=== PATIENT | male | born 1970 | race Caucasian/White ===

== ENCOUNTER 2016-11-18 13:06 | Emergency (ER) | payer OTHER ==
[2016-11-18 13:18] VITALS: BP 129/78
--- NOTE | 2016-11-18 13:46 | PROVIDER DOCUMENTATION ---
HPI-General Adult - General Chief Complaint: Flu Symptoms Stated Complaint: FLU LIKE SX Time Seen by Provider: 11/18/16 13:13 Source: patient Allergies/Adverse Reactions: Patient Allergies Allergy/AdvReac Type Severity Reaction Status Date / Time No Known Allergies Allergy Verified 04/09/16 14:00 Home Medications: Fluoxetine [Prozac] 20 mg PO DAILY 11/23/13 Gabapentin [Neurontin] 800 mg PO BID 11/23/13 Pregabalin [Lyrica] 150 mg PO TID 11/23/13 Oxycodone E.r. [Oxycontin] 15 mg PO TID 09/07/15 - History of Present Illness -Gen Adult Nature of Presenting Problems: pt is a 46 y/o M that presents to the ER with 3 days of cough/congestion, sore throat, runny nose, fever/chills, body aches, and nausea. Location of Pain/Injury: reports: generalized Pain Radiation: reports: no radiation Quality of Pain: reports: aching Severity: reports: mild, moderate Onset/Duration: reports: gradual, 3 days ago Timing: reports: still present, constant Context/Activities at Onset: reports: none Modifying Factors: improves with: nothing Associated Symptoms: reports: cough, EENT symptoms, fever/chills, heartburn, muscle aches, nausea. denies: diarrhea, genitourinary problems, headaches, rash , shortness of breath, vomiting Similar Symptoms Previously?: No Recently seen or treated by another doctor?: No Review of Systems - Adult - REVIEW OF SYSTEMS - ADULT Constitutional: reports: chills, fever Eyes: denies: decreased vision, blurred vision, double vision Ears, Nose, Mouth & Throat: reports: sinus problem, throat pain. denies: ear pain Cardiovascular: denies: chest pain, palpitations Respiratory: reports: cough. denies: shortness of breath, wheezing Gastrointestinal: reports: nausea. denies: abdominal pain, diarrhea, rectal bleeding Genitourinary: reports: no symptoms reported Musculoskeletal: reports: muscle aches. denies: muscle weakness Integumentary: reports: no symptoms reported Neurological: reports: no symptoms reported Psychiatric: reports: no symptoms reported Endocrine: reports: no symptoms reported Hematologic/Lymphatic: reports: no symptoms reported Allergic/Immunologic: reports: no symptoms reported All Other Systems: Reviewed and Negative Past History - Adult - PAST MEDICAL HISTORY-ADULT Review of Records: reports: Old Records Reviewed, Nursing Assessment Review, Medications Reviewed Respiratory: reports: other (chronic cough) Gastrointestinal: reports: denies history Musculoskeletal: reports: chronic pain Psychiatric: reports: depression - PRIOR SURGERIES/PROCEDURES Surgical/Procedure History: reports: hernia repair, back/neck (back x3) - IMMUNIZATION STATUS Childhood Immunizations: See Nurse Assessment Flu Vaccine: See Nurse Assessment - FAMILY HISTORY Family History: reviewed, not pertinent - SOCIAL HISTORY Smoking: cigarettes, less than 1 pack/day Alcohol Use Frequency: occasionally Physical Exam-General - PHYSICAL EXAM-ADULT Initial Vital Signs Reviewed: Yes - CONSTITUTIONAL General Appearance: alert, no apparent distress - EYES Eyes: PERRL/EOMI, pink conjunctivae, fundi clear, no AV nicking - HEAD, EARS, NOSE, MOUTH & THROAT HENMT: normocephalic/atraumatic, moist mucous membranes, normal ENT inspection - NECK Neck: full range of motion, normal inspection - RESPIRATORY Respiratory: no respiratory distress, no accessory muscle use, wheezing. negative: crackles, rales - CARDIOVASCULAR Cardiovascular: regular rate, rhythm, no edema, no murmur - GASTROINTESTINAL (ABDOMEN) Abdominal Exam: normal bowel sounds, non tender, soft - MUSCULOSKELETAL Extremity: normal range of motion, normal inspection, no pedal edema - SKIN Integumentary: normal color, warm/dry - NEUROLOGIC Neurologic: grossly normal, no motor/sensory deficits - PSYCHIATRIC Psych/Mental Status: normal mood/affect, normal thought content, normal thought process, oriented x 3 Progress - PLAN OF CARE/RESULTS Progress/Plan/Lab Results: plan of care-swabs, breathing tx, cxr, ekg, Vital Signs Temp Pulse Resp BP Pulse Ox 11/18/16 14:23 69 16 99 11/18/16 14:15 59 L 18 99 11/18/16 13:14 99 F 83 18 129/78 98 No Known Allergies Allergy (Verified 04/09/16 14:00) Fluoxetine [Prozac] 20 mg PO DAILY 11/23/13 Gabapentin [Neurontin] 800 mg PO BID 11/23/13 Pregabalin [Lyrica] 150 mg PO TID 11/23/13 Oxycodone E.r. [Oxycontin] 15 mg PO TID 09/07/15 Omeprazole 40 mg PO DAILY #30 capsule. 09/08/15 Laboratory 11/18/16 13:13 Influenza A (Rapid) NEGATIVE Influenza B (Rapid) NEGATIVE Orders Category Date Time Status CHEST-2 VIEWS [RAD] Stat Exams 11/18/16 13:[address] Stat Lab 11/18/16 13:[address] Stat Lab 11/18/16 13:13 Completed Albuterol 2.5MG/Ipratrop 0.5MG [Duoneb (A & A)] Med 11/18/16 13:49 Discontinued 3 ml INH NOW ONE Albuterol 2.5MG/Ipratrop 0.5MG [Duoneb (A & A)] Med 11/18/16 14:23 Discontinued 3 ml INH NOW ONE Lido/Mooney Alk/Al&mg Hydrox [G.i. Cocktail] Med 11/18/16 13:49 Discontinued 30 ml PO NOW ONE Methylprednisolone Sod Succ [Solu-Medrol] Med 11/18/16 13:49 Discontinued 125 mg IM NOW ONE Aerosol Treatments Routine Oth 11/18/16 13:50 Completed Aerosol Treatments Routine Oth 11/18/16 14:24 Completed Aerosol Treatments Stat Oth 11/18/16 13:50 Completed Aerosol Treatments Stat Oth 11/18/16 14:24 Completed EKG [EKG] Stat Ther 11/18/16 13:50 Draft patient will be d/c home with rx, f/u with pcp, pt was clinically stable. - REASSESSMENT Reassessment #1 Time Reassessed: 15:33 Status: improving Reassessment Comment: breathing better - EKG 1 Time of EKG reading by physician:: 14:06 EKG Read and Signed by:: Rashad Rodriguez EKG Interpretation (*Must complete 3 of following elements*): Normal Rate: 55 Rhythm: sinus bradycardia [place]: normal QRS: normal [place] Interval: normal ST Wave: normal - XRAY 1 XRAY Study: Chest Impression: Normal XRAY Interpretation: NAD Departure - Departure Time of Disposition Order: 15:33 DIAGNOSIS: Upper respiratory infection Disposition: HOME 01 Certified Medical Emergency: Emergent Condition: Stable Additional Instructions: ED Follow Up Instructions: You have been treated by a care provider in the Emergency Department. These instructions are being provided to you so you can have an understanding of how to care for yourself upon discharge. Upon discharge from the Emergency Department, you are responsible for making arrangements for follow-up care by a physician of your choice. Take all prescribed medications as directed. Return to the Emergency Department immediately for any new or worsening symptoms. You may call the Physician Referral phone number at [phone] to obtain a list of Physicians who are taking new patients. Referrals: Janes Montano [Primary Care Provider] - Call for Appoint. 1-2days Instructions: Upper Respiratory Infection, Adult, [id number] Attestation - Scribe Verification/Attestation Scribe:: Jose Francisco Ireland Acting as Scribe for:: Rashad Rodriguez Scribe documention review:: This chart was documented by a scribe and accurately reflects the service the provider performed and the decisions made by the provider. Physician Attestation - Physician Attestation I, the provider, attest to the following statement:: Rashad Rodriguez Physician documentation Attestation:: This documentation recorded by the scribe accurately reflects the service I personally performed and the decisions made by me.
[2016-11-18] MEDS ORDERED: SOLU-MEDROL IM ONE (13:49)
[2016-11-18] MEDS ORDERED: DUONEB (A & A) INH ONE ×2 (13:49→14:23)
[2016-11-18] MEDS: G.I. COCKTAIL PO ONE ×2 (13:49→14:21)
--- NOTE | 2016-11-18 14:30 | Diag Imaging Result Document ---
PROCEDURE NAME: CHEST-2 VIEWS - 11/18/2016 2 VIEWS OF THE CHEST: FINDINGS: There is no evidence of acute cardiac or pulmonary disease. The appearance of the chest has not changed significantly since 04/09/2016. IMPRESSION: No acute disease.
--- NOTE | 2016-11-18 14:36 | EKG Report ---
Test Performed on : 11/18/2016 2:06:39 PM Test Reason : CP Blood Pressure : / mmHG Vent. Rate : 055 BPM Atrial Rate : 055 BPM P-R Int : 142 ms QRS Dur : 102 ms QT Int : 404 ms P-R-T Axes : 070 082 057 degrees QTc Int : 386 ms Sinus bradycardia. Otherwise normal ECG When compared with ECG of 09-APR-2016 14:05, No significant change was found Unconfirmed Result
== END 2016-11-18 15:41 | disposition home or self-care (01) ==
LOC: P.ED 13:06
DX: J06.9 Acute upper respiratory infection, unspecified (principal); R05 Cough; R09.81 Nasal congestion; J02.9 Acute pharyngitis, unspecified; R09.89 Other specified symptoms and signs involving the circulatory and respiratory systems; R50.9 Fever, unspecified; R11.0 Nausea; M79.1 Myalgia; Z79.899 Other long term (current) drug therapy; R12 Heartburn; R06.2 Wheezing; G89.29 Other chronic pain; F32.9 Major depressive disorder, single episode, unspecified; F17.210 Nicotine dependence, cigarettes, uncomplicated; Z71.6 Tobacco abuse counseling
CPT/HCPCS: 71020; 87804; 93005; 94640; 96372; J2930